=== PATIENT | female | born 1990 ===

== ENCOUNTER 2016-09-18 01:27 | Emergency (ER) | payer OTHER ==
[~2016-09-18] VITALS: Ht 152.4 cm; Wt 53.0 kg
[2016-09-18 01:31] VITALS: TEMP 36.8; Ht 152.4 cm; Wt 53.0 kg
[2016-09-18] MEDS ORDERED: LEVO88TA3 PO (02:20)
[2016-09-18] MEDS ORDERED: FERR1TAB23 PO (02:20)
[2016-09-18] MEDS ORDERED: MECLIZINE HCL 25 MG TAB PO STA (02:29)
[2016-09-18] MEDS ORDERED: SODIUM CHLORIDE 0.9% 1000ML 1,000 ML IV ONE (02:30)
[2016-09-18 02:31] LABS: BASO % 0.6 %; BASO ABS # 0.09 K/uL (0-0.2); EOS % 4.7 %; HEMATOCRIT 33.6 % (37-47); IG% 0.2 %; LYMPH % 21.7 %; LYMPH ABS # 3.25 K/uL (1.2-3.4); MEAN CELL VOLUME 66.1 fL (80-100); MEAN CORPUSCULAR HEMOGLOBIN 20.3 pg (25-34); MEAN CORPUSCULAR HGB CONC 30.7 g/dl (32-36); MEAN PLATELET VOLUME 10.6 fL (7.4-10.4); MONO % 7.3 %; NEUT % 65.5 %; PLATELET COUNT 456 K/uL (130-400); RED BLOOD COUNT 5.08 M/uL (4.2-5.4); WHITE BLOOD COUNT 14.99 K/uL (4.8-10.8)
[2016-09-18 02:45] LABS: CALCIUM 9.2 mg/dl (8.5-10.1); CREATININE 0.65 mg/dl (0.60-1.20); MAGNESIUM 1.9 mg/dl (1.8-2.4); POTASSIUM 2.9 mmol/L (3.5-5.1)
[2016-09-18 02:56] LABS: COMPLETE YES; HYPOCHROMIA PRESENT; MICROCYTOSIS PRESENT; THYROID STIMULATING HORMONE 0.612 uIu/ml (0.300-4.500)
[2016-09-18 02:58] LABS: URINE APPEARANCE CLOUDY (CLEAR); URINE BILIRUBIN NEG (NEG); URINE COLOR YELLOW; URINE EPITHELIAL CELL AUTO >30 /lpf (0-5); URINE NITRITE NEG (NEG); URINE SPECIFIC GRAVITY 1.026 (1.000-1.030); UROBILINOGEN NEG (NEG); ZZUR CULT IF INDIC CLEAN CATCH YES
[2016-09-18 03:01] LABS: MANUAL MICROSCOPIC REQUIRED? NO; REVIEW REQ? YES
[2016-09-18 03:14] LABS: BENZODIAZEPINE, URINE NEG (NEG); COCAINE,URINE NEG (NEG); PHENCYCLIDINE, URINE NEG (NEG)
[2016-09-18] MEDS ORDERED: POTASSIUM CHLR 20 MEQ / WTR 20 MEQ in PREMIXED WATER 100 ML IV STA (03:31)
[2016-09-18 03:34] LABS: LYME DISEASE AB IGG NEG (NEG); LYME DISEASE AB IGM NEG (NEG)
[2016-09-18] MEDS: POTASSIUM CHLR 10MEQ / WTR IV SCH ×2 (03:45→04:45)
[2016-09-18] MEDS ORDERED: POTASSIUM CHLORIDE 10 MEQ / 100ML WTR IV ONE (03:53)
[2016-09-18] MEDS ORDERED: SULF800T23 PO (04:59)
[2016-09-18] MEDS ORDERED: ALBE1TAB PO (04:59)
[2016-09-18] MEDS ORDERED: SULFAMETHOXAZOLE/TRIMETHOPRIM DS 800/160MG TAB PO ONE (05:00)
[2016-09-18 06:52] VITALS: BP 114/67; PULSE 67; O2SAT 100
--- NOTE | 2016-09-21 20:15 | EMERGENCY ROOM VISIT NOTE ---
History First contact with patient: 02:06 Chief Complaint: DIZZY Stated Complaint: DIZZY/SHORT OF BREATH/NAUSEA Nursing Triage Summary: pt states for past 2-3 weeks she has been feeling dizzy, nauseated, slight h/a. pt has hx of anemia, her dr just recently placed her on iron suppliments 3 days ago. tyonight she became so dizzy she felt she might fall so she called ems History of Present Illness The patient is a 25 year old female who presents to the Emergency Room with complaints of vague symptoms of lightheadedness, nausea, and mild headache for the past 3 weeks. The patient has been seen by [facility] for this, and was diagnosed with iron deficiency anemia. The patient states that she has been on iron supplements for a few days. Tonight she had increased dizziness and felt that she may fall, prompting her to call EMS. The patient has not had fever or chills. She does have a history of hypothyroid. She is from [place], and has been traveling [place] the [place]. She rates her overall discomfort a 5/10. Review of Systems More than 10 systems were reviewed and otherwise negative with the exception of history of present illness. Past Medical/Surgical History Iron deficiency anemia Family History No pertinent family history Social History Smoking Status: Never Smoker Occupation Status: [employer] Current/Historical Medications Scheduled Albendazole (Albenza), 400 MG PO DIRECTED Ferrous Sulfate (Iron), 325 MG PO DAILY Levothyroxine Sodium (Levothyroxine Sodium), 88 MCG PO DAILY Sulfa/Trimethoprim (Bactrim Ds 800MG/160MG), 1 TAB PO BID Allergies Coded Allergies: No Known Allergies (Unverified , 09/18/16) Physical Exam Vital Signs Date Time Temp Pulse Resp B/P Pulse Ox O2 Delivery O2 Flow Rate FiO2 09/18/16 06:52 67 18 114/67 100 Room Air 09/18/16 06:30 71 18 129/74 99 09/18/16 05:35 81 18 121/77 98 Room Air 09/18/16 03:12 70 111/71 92 136/84 90 130/84 09/18/16 01:31 36.8 102 18 142/101 100 Room Air Pain Rating (0-10): 0 Physical Exam VITALS: Vitals are noted on the nurse's note and reviewed by myself. Vital signs stable. GENERAL: Well-developed, well-nourished, female, who is in no acute distress and resting comfortably. Patient is cooperative with the examination. HEAD: Normocephalic atraumatic. EARS: External ear normal. External auditory canals clear, tympanic membranes pearly [place] without erythema or effusion bilaterally. EYES: Pupils equal round and reactive to light and accommodation. Conjunctivae without injection, sclerae without icterus. Extraocular movements intact. NOSE: Patent, turbinates without inflammation or discharge. MOUTH: Mucous membranes moist. Tonsils are not enlarged. Pharynx without erythema, blood, or exudate. Uvula midline. Airway patent. NECK: Supple without nuchal rigidity. No lymphadenopathy. No thyromegaly. Cervical spine is nontender. HEART: Regular rate and rhythm without murmurs gallops or rubs. LUNGS: Clear to auscultation bilaterally without wheezes, rales or rhonchi. No retractions or accessory muscle use. ABDOMEN: Positive normal bowel sounds x 4. Soft, nontender, without masses or organomegaly. No guarding or rebound tenderness. MUSCULOSKELETAL: No muscle atrophy, erythema, or edema noted. Full range of motion without joint tenderness in all extremities. No tenderness to palpation. Normal gait. Strength 5/5 throughout. NEURO: Patient was alert and oriented to person place and time. CN II through XII grossly intact. Deep tendon reflexes 2+ throughout. No focal neurological deficits SKIN: The skin was without rashes, erythema, edema, or bruising. Capillary reflex less than 2 seconds. Medical Decision & Procedures Laboratory Results 09/18/16 01:40 Red Blood Count 5.08, Mean Corpuscular Volume 66.1, Mean Corpuscular Hemoglobin 20.3, Mean Corpuscular Hemoglobin Concent 30.7, Mean Platelet Volume 10.6, Neutrophils (%) (Auto) 65.5, Lymphocytes (%) (Auto) 21.7, Monocytes (%) (Auto) 7.3, Eosinophils (%) (Auto) 4.7, Basophils (%) (Auto) 0.6, Neutrophils # (Auto) 9.83, Lymphocytes # (Auto) 3.25, Monocytes # (Auto) 1.09, Eosinophils # (Auto) 0.70, Basophils # (Auto) 0.09 09/18/16 01:40 Test 09/18/16 01:35 09/18/16 01:40 09/18/16 02:43 Urine Color YELLOW Urine Appearance CLOUDY (CLEAR) Urine pH 5.0 (4.5-7.5) Urine Specific [place] 1.026 (1.000-1.030) Urine Protein NEG (NEG) Urine Glucose (UA) NEG (NEG) Urine Ketones TRACE (NEG) Urine Occult Blood NEG (NEG) Urine Nitrite NEG (NEG) Urine Bilirubin NEG (NEG) Urine Urobilinogen NEG (NEG) Urine Leukocyte Esterase TRACE (NEG) Urine WBC (Auto) 10-30 /hpf (0-5) Urine RBC (Auto) 0-4 /hpf (0-4) Urine Hyaline Casts (Auto) 5-10 /lpf (0-5) Urine Epithelial Cells (Auto) >30 /lpf (0-5) Urine Bacteria (Auto) 2+ (NEG) Urine Renal Epithelial Cells /lpf (0-5) Urine Test NEG (NEG) Urine Opiates Screen NEG (NEG) Urine Methadone, Qualitative NEG (NEG) Urine Barbiturates NEG (NEG) Urine Phencyclidine (PCP) Level NEG (NEG) Ur Amphetamine/Methamphetamine NEG (NEG) MDMA (Ecstasy) Screen NEG (NEG) Urine Benzodiazepines Screen NEG (NEG) Urine Cocaine Metabolite NEG (NEG) Urine Marijuana (THC) NEG (NEG) White Blood Count 14.99 K/uL (4.8-10.8) Red Blood Count 5.08 M/uL (4.2-5.4) Hemoglobin 10.3 g/dL (12.0-16.0) Hematocrit 33.6 % (37-47) Mean Corpuscular Volume 66.1 fL (80-100) Mean Corpuscular Hemoglobin 20.3 pg (25-34) Mean Corpuscular Hemoglobin Concent 30.7 g/dl (32-36) Platelet Count 456 K/uL (130-400) Mean Platelet Volume 10.6 fL (7.4-10.4) Neutrophils (%) (Auto) 65.5 % Lymphocytes (%) (Auto) 21.7 % Monocytes (%) (Auto) 7.3 % Eosinophils (%) (Auto) 4.7 % Basophils (%) (Auto) 0.6 % Neutrophils # (Auto) 9.83 K/uL (1.4-6.5) Lymphocytes # (Auto) 3.25 K/uL (1.2-3.4) Monocytes # (Auto) 1.09 K/uL (0.11-0.59) Eosinophils # (Auto) 0.70 K/uL (0-0.5) Basophils # (Auto) 0.09 K/uL (0-0.2) RDW Standard Deviation 43.1 fL (36.4-46.3) RDW Coefficient of Variation 18.1 % (11.5-14.5) Immature Granulocyte % (Auto) 0.2 % Immature Granulocyte # (Auto) 0.03 K/uL (0.00-0.02) Hypochromasia PRESENT Microcytosis PRESENT Anion Gap 7.0 mmol/L (3-11) Est Creatinine Clear Calc Drug Dose 94.2 ml/min Estimated GFR () 142.0 Estimated GFR (Non- 122.5 BUN/Creatinine Ratio 27.0 (10-20) Calcium Level 9.2 mg/dl (8.5-10.1) Magnesium Level 1.9 mg/dl (1.8-2.4) Total Bilirubin 0.3 mg/dl (0.2-1) Aspartate Amino Transf (AST/SGOT) 17 U/L (15-37) Alanine Aminotransferase (ALT/SGPT) 20 U/L (12-78) Alkaline Phosphatase 85 U/L (45-117) Total Protein 8.4 gm/dl (6.4-8.2) Albumin 4.2 gm/dl (3.4-5.0) Globulin 4.2 gm/dl (2.5-4.0) Albumin/Globulin Ratio 1.0 (0.9-2) Thyroid Stimulating Hormone (TSH) 0.612 uIu/ml (0.300-4.500) Lyme Disease IgG Antibody NEG (NEG) Lyme Disease IgM Antibody NEG (NEG) Bedside Troponin I 0.000 ng/ml (0-0.045) Date/Time Source Procedure Growth Status 09/18/16 01:35 Urine , Clean Catch Urine Culture - Final MORE THAN THREE TYPES OF ORGANISMS [place]... Complete Medications Administered Medications (Trade) Dose Ordered Sig/Srini Route Start Time Stop Time Status Last Admin Dose Admin Sodium Chloride (Nss 1000ml) 1,000 ml @ 999 mls/hr Q1H1M ONCE IV 09/18/16 02:30 09/18/16 03:30 DC 09/18/16 02:47 999 MLS/HR Meclizine HCl 25 mg 25 mg NOW STAT PO 09/18/16 02:29 09/18/16 02:30 DC 09/18/16 02:47 25 MG Potassium Chloride/Prmx (Kcl 10 Meq / Wtr/Premixed Water) 100 ml @ 100 mls/hr Q1H IV 09/18/16 03:45 09/18/16 05:44 DC 09/18/16 04:45 100 MLS/HR Trimethoprim/ Sulfamethoxazole (Septra Ds 800/ 160MG Tab) 1 tab NOW ONCE PO 09/18/16 05:00 09/18/16 05:01 DC 09/18/16 05:00 1 TAB ED Course Physical exam and history were performed. Nursing notes and EMR were reviewed. Patient appears to have vague lightheadedness and fatigue over the past several weeks. She does not have chest pain or shortness of breath symptoms. The patient does not appear toxic on examination. IV access was established and labs were obtained. The patient was hydrated with normal saline. EKG was normal sinus rhythm without ischemia and she was placed on the cafeteria monitor. She was given a meclizine here in the department, as sometimes she feels like she is spinning. The patient's blood work is as above and was reviewed. She does have slightly elevated white blood cell count of nearly 15,000. She is anemic, and based on her indices it is likely an iron deficiency anemia. Her troponin 1 is negative. Drug of abuse screen is negative as well. Her urine is concerning for possible infection with culture pending at time of this dictation. Her potassium is 2.9 and this was repleted through her IV. Lyme is negative. I did discuss the patient's findings with her father, who is an orthopedic physician in [place]. He states there are several common helminth infections that can cause what appears to be an iron deficiency anemia in the area where they live. He asked if I was willing to start her on a single dose of albendazole with a repeat dose and one month. This is reasonable as this could alleviate her symptoms. Overall the patient appears stable for discharge home. She is without chest pain or shortness of breath symptoms. Much of her symptoms are related to lightheadedness. I will treat her well possible UTI with a short course of Bactrim. She is to follow with [facility] for further care and management. She was otherwise invited them to return with any new, worsening, or concerning symptoms The chart was completed utilizing [employer] Voice Recognition Software. Grammatical errors, random word insertions, pronoun errors, and incomplete sentences are an occasional consequence of this system due to software limitations, ambient noise, and hardware issues. Any formal questions or concerns about the content, text, or information contained within the body of this dictation should be directly addressed to the provider for clarification. . Medical Decision Differential diagnosis: Etiologies such as benign positional vertigo, dehydration, hypovolemia, anemia, tumor, infection, hypoglycemia, electrolyte abnormalities, cardiac sources, intracerebral event, toxicologic, neurologic, as well as others were entertained. Impression Primary Impression: Lightheadedness Additional Impressions: Anemia UTI (urinary tract infection) Hypokalemia Departure Information Dispostion Home / Self-Care Condition GOOD Prescriptions Sulfa/Trimethoprim (Bactrim Ds 800MG/160MG) Tab 1 TAB PO BID for 7 Days, #14 TAB Prov: Paramjit Jeffery PA-C 09/18/16 Albendazole (ALBENZA) 200 Mg Tab 400 MG PO DIRECTED, #4 TABS Take 400 mg by mouth now. Repeat dose in 4 weeks. Prov: Paramjit Jeffery PA-C 09/18/16 Referrals [facility] (PCP) Forms HOME CARE DOCUMENTATION FORM, IMPORTANT VISIT INFORMATION Patient Instructions My [facility] Additional Instructions You were seen and evaluated today on an emergency basis only. This is not a substitute for, or an effort to provide, complete comprehensive medical care. It is not possible to recognize and treat all injuries or illnesses in a single emergency department visit. For this reason it is recommended that you followup with [facility] next week for ongoing care and evaluation. Continue your iron supplements as previously instructed. Trimethoprim-Sulfamethoxazole(Bactrim DS): Take one pill twice daily for 7 days for your infection. All antibiotics can cause diarrhea. If this occurs and you feel worse or it does not resolve in 1-2 days follow up with your doctor or return to the Emergency Department as this could be signs of serious underlying problems. Any medication can cause an allergic reaction, stop the pills immediately and return to the ER for rash, hives, breathing difficulties, or swelling. Take Albendazole 400 mg 1 dose. Repeat this in 4 weeks. You are welcome to return to the emergency department anytime with new, worsening, or concerning symptoms. Problem Qualifiers
== END 2016-09-18 06:30 | disposition home or self-care (01) ==
LOC: C.EDB 01:30
DX: R42 Dizziness and giddiness (principal); D64.9 Anemia, unspecified; N39.0 Urinary tract infection, site not specified; E87.6 Hypokalemia